=== PATIENT | female | born 1965 | race Caucasian/White ===

== ENCOUNTER 2019-02-20 14:53 | Outpatient (CLI) | payer MEDICARE, MEDICAID ==
--- NOTE | 2019-02-20 15:29 | RAD ---
EXAM: 4 views of the lumbosacral spine HISTORY: Low back pain COMPARISON: None FINDINGS: 4 views of the lumbosacral spine shows normal height and alignment of the vertebral bodies and intervertebral discs without fracture or subluxation. Alignment is unchanged with flexion and extension. Posterior facet arthrosis is seen at L5/S1. The sacroiliac joints are unremarkable. IMPRESSION: Degenerative change at L5/S1 with unchanged alignment with bending.
--- NOTE | 2019-02-20 15:30 | RAD ---
EXAM: 4 views of the cervical spine HISTORY: Neck pain and cervical radiculopathy COMPARISON: None FINDINGS: AP, lateral, and flexion/extension views of the cervical spine shows normal height and alig nment of the vertebral bodies without fracture or subluxation. The intervertebral discs are narrowed throughout cervical spine with moderate anterior osteophytes. No prevertebral soft tissue sw elling is seen. Alignment is unchanged with flexion and extension. IMPRESSION: Moderate degenerative changes of the cervical spine with unchanged alignment with bending .
--- NOTE | 2019-02-20 16:07 | MRI ---
EXAM: MRI cervical spine without contrast HISTORY: Cervical radiculopathy COMPARISON: None TECHNIQUE: Multiplanar multisequence MR images were obtained of the cervical spine without contrast. FINDINGS: The vertebral bodies demonstrate normal height and alignment without fracture or subluxation. There i s generalized disc desiccation and loss of intervertebral disc space height in the mid cervical spine. Endplate degenerative changes are seen in the mid cervical spine. The visualized cord demonstrates normal signal throughout. The craniocervical junction is unremarkab le. The prevertebral soft tissues are unremarkable. No paraspinal soft tissue abnormality is seen. C2/3: No significant posterior bulge or protrusion. No posterior facet arthrosis. No central canal stenosis. No neural foraminal stenosis. C3/4: A small disc osteophyte complex is seen. No posterior facet arthrosis. No central canal steno sis. Mild left neural foraminal stenosis. C4/5: A moderate disc osteophyte complex is seen. No posterior facet arthrosis. Severe central charleen l stenosis. Severe bilateral neural foraminal stenosis. C5/6: A moderate disc osteophyte complex is seen. No posterior facet arthrosis. Moderate central ca nal stenosis. Moderate bilateral neural foraminal stenosis. C6/7: A small disc osteophyte complex is seen. No posterior facet arthrosis. Mild central canal carley nosis. Mild bilateral neural foraminal stenosis. C7/T1: No significant posterior bulge or protrusion. No posterior facet arthrosis. No central canal stenosis. No neural foraminal stenosis. IMPRESSION: Degenerative changes of the cervical spine as above
--- NOTE | 2019-02-20 16:41 | MRI ---
MRI Lumbar Spine Noncontrast: HISTORY: Lumbar radiculopathy. Patient claims of low back pain for years. COMPARISON: None FINDINGS: A subcentimeter focus of increased T2-weighted signal intensity is seen at the anterior aspect superi or pole left kidney which is difficult to characterize but statistically likely represents a small cyst. Visualized retroperitoneal structures otherwise demonstrate grossly normal nonenhanced MRI appe arance. Conus medullaris is normal in morphology and terminates at the T12-L1 level. Endplate degenerative changes are seen at the L5-S1 level. There is otherwise normal signal intensity demonstrated in the bone marrow. L1-2: There is no disc bulge or disc herniation. Central spinal canal and neural foramina are patent. L2-3: There is no disc bulge or disc herniation. Central spinal canal and neural foramina are patent. L3-4: There is no disc bulge or disc herniation. Central spinal canal and neural foramina are patent. L4-5: There is minimal disc osteophyte complex with flattening of the anterior aspect of thecal sac w ithout significant central canal narrowing. There is mild left and minimal right-sided neural foraminal narrowing. L5-S1: There is loss of intervertebral disc height with a right paracentral disc protrusion/foraminal disc protrusion. Central spinal canal is patent. Mild facet degenerative changes are noted. There is minimal left-sided neural foraminal narrowing. This also right-sided neural foraminal narrowing, a nd the right foraminal disc protrusion does appear to contact the right L5 nerve root within the neural foramen. A small increased T2-weighted signal intensity structure is seen just medial to the f acet joints on the left measuring 8 mm reflective of a small synovial cyst which results in only slight mass effect on the left lateral aspect of the thecal sac at this level. There is edema seen wi thin the facet joints on the left as well as fluid signal intensity in the left facet joint. There is mild increased T2-weighted signal intensity seen in a periarticular location involving the facet j oints. Findings are likely related to the prominent degenerative changes of the facet joint at this level. Similar finding is seen on the right but to a much lesser extent. IMPRESSION: 1. Mild disc degenerative changes in lower lumbar spine greatest the L5-S1 level. There is a right fo raminal disc protrusion which narrows the right neural foramen and contacts the right L5 nerve root in the neural foramen. Correlation for right L5 radiculopathy is suggested. 2. Increased T2-weighted signal intensity within the facets as well as fluid signal intensity in the facet joint on the left at the L5-S1 level with periarticular increased signal intensity as well. These findings are likely related to inflammatory changes secondary to the prominent facet hypertroph ic and degenerative changes.
== END 2019-02-20 14:54 | disposition home or self-care (01) ==
LOC: BICMRI 14:53
PROVIDERS: ATTEND Neurological Surgery
DX: M47.22 Other spondylosis with radiculopathy, cervical region (principal); M47.27 Other spondylosis with radiculopathy, lumbosacral region; M51.16 Intervertebral disc disorders with radiculopathy, lumbar region
CPT/HCPCS: 72050; 72110; 72141; 72148

== ENCOUNTER 2019-04-11 09:35 | Outpatient (CLI) | payer MEDICARE, MEDICAID ==
[2019-04-11 11:08] LABS: Hemoglobin 12.7 g/dL (12.0-16.0); Mean Corpuscular HGB CONC 32.9 g/dL (32.0-36.0); Mean Corpuscular Volume 94.1 fL (78.0-98.0); Mean Platelet Volume 8.7 fL (7.4-10.4); Platelet Count 276 thou/uL (130-400); RBC Distribution Width 13.9 % (11.5-14.5); Red Blood Cell (RBC) Count 4.09 mill/uL (4.20-5.40)
[2019-04-11 11:31] LABS: Anion Gap 13 mmol/L (10-20); BUN (Urea Nitrogen) 12 mg/dL (9.8-20.1); Calc. Creatinine Clearance 0 mL/min (70-130); Calcium 9.3 mg/dL (7.8-10.44); Carbon Dioxide 27 mmol/L (22-29); Chloride 100 mmol/L (98-107); Estimated GFR-MDRD 72; Glucose 90 mg/dL (70-105); Sodium 136 mmol/L (136-145)
== END 2019-04-11 09:36 | disposition home or self-care (01) ==
LOC: LABBT 09:35
PROVIDERS: ATTEND Neurological Surgery
DX: Z01.818 Encounter for other preprocedural examination (principal); M54.12 Radiculopathy, cervical region
CPT/HCPCS: 80048; 85027; 93005; 93010

== ENCOUNTER 2019-04-16 07:02 | Day surgery (SDC) | payer MEDICARE, MEDICAID ==
[2019-04-11 10:04] VITALS: BMI 26.6
[2019-04-16] MEDS ORDERED: ceFAZolin Sodium (SDC) 2 GM/100 ML BAG ONE (07:38)
[2019-04-16] MEDS ORDERED: Midazolam HCl 2 mg/2 ml Vial ONE (08:14)
[2019-04-16] MEDS ORDERED: Fentanyl 100 MCG/2 ML VIAL ONE ×4 (09:43→11:56)
--- NOTE | 2019-04-16 12:43 | OP ---
DATE OF PROCEDURE: 04/16/2019 STORAGE RECEIPT POSTER: Jaime Andrade PA-C PROCEDURES PERFORMED: Anterior cervical diskectomy C3 through C5, interbody arthrodesis, intervertebral biomechanical device, local morselized autograft, demineralized bone matrix, anterior titanium instrumentation, C3 through C5. DESCRIPTION OF PROCEDURE: The patient was brought to the operating room and intubated. She was positioned supine with the head in modest extension on gel-filled donut. An incision was made in the right precervical area and dissected medial to the sternocleidomastoid muscle, identified the anterior cervical spinal, and the level was confirmed by x-ray. We placed distraction from C3 to C5, debrided the anterior osteophytes and completely removed the intervertebral disks. After complete decompression had been achieved, bony endplates were decorticated for the purpose of arthrodesis and appropriate-sized intervertebral biomechanical PEEK device was brought into the field, filled with demineralized bone matrix, local morselized autograft, and tapped in place securely at C3-C4 and C4-C5. Next, an anterior plate was brought into the field and secured to C3, C4, and C5 using two 14-mm screws at each level. The wound was then extensively irrigated and MAC hemostasis was secured and the wound was closed in anatomic layers. Job ID: [id number]
[2019-04-16] MEDS ORDERED: HYDROcodone/Acetaminophen 5/325 mg Tablet ONE (13:14)
== END 2019-04-16 14:10 | disposition home or self-care (01) ==
LOC: SDC 07:02
PROVIDERS: ATTEND Neurological Surgery
PROC: 0RG20A0 Fusion of 2 or more Cervical Vertebral Joints with Interbody Fusion Device, Anterior Approach, Anterior Column, Open Approach (ICD-10-PCS; principal; 2019-04-16)
PROC: 0RB30ZZ Excision of Cervical Vertebral Disc, Open Approach (ICD-10-PCS; 2019-04-16)
DX: M50.10 Cervical disc disorder with radiculopathy, unspecified cervical region (principal); Z79.899 Other long term (current) drug therapy
CPT/HCPCS: 76000; C1713; C1776; J0690; J2250; J3010

== ENCOUNTER 2019-04-27 19:45 | Inpatient (IN) | payer MEDICARE, MEDICAID ==
[~2019-04-27 19:45] MED LIST: ISOVUE-370 76%-LOCM 1 ML ONE
[2019-04-27] MEDS ORDERED: HYDROcodone/Acetaminophen 10/325 mg Tablet ONE (21:28)
[2019-04-27] MEDS ORDERED: Fentanyl 100 MCG/2 ML VIAL ONE (22:03)
--- NOTE | 2019-04-27 22:06 | CT ---
CT NECK SOFT TISSUES WITH IV CONTRAST: 04/27/19 HISTORY: 43-year-old female with recent cervical spinal fusion surgery on 04/16/19. Possible infection at surgi ginette site. She noted drainage, swelling, odor. FINDINGS/IMPRESSION: There is fluid and small amount of soft tissue air in the right lower anterior neck without a well lo culated fluid collection. The airway appears patent. The parotid, submandibular and thyroid glands appear normal. A few promine nt right cervical lymph nodes are seen measuring up to 8 mm in short axis diameter. There are emphy sematous changes in the lung apices. There are postop changes of anterior spinal fusion with plate an d screws and intradiscal prostheses at C3-4-5 level in good position and alignment. There is a small amount of air in the soft tissues posterior to the hyoid bone. POS: KASHIF
[2019-04-28] MEDS ORDERED: Nicotine 14 MG PATCH TOP SCH (00:30)
[2019-04-28] MEDS ORDERED: Nicotine 14 MG PATCH ONE (00:32)
[2019-04-28 00:51] LABS: #Basophils 0.2 thou/uL (0.0-0.2); #Eosinphils 0.5 thou/uL (0.0-0.7); #Lymphocytes 4.1 thou/uL (1.20-3.40); #Monocytes 0.7 thou/uL (0.11-0.59); %Basophils 1.9 % (0.0-1.0); %Eosinophils 5.5 % (0.0-10.0); %Lymphocytes 48.5 % (21.0-51.0); %Monocytes 8.2 % (0.0-10.0); %Neutrophils 35.9 % (42.0-75.0); Hemoglobin 12.3 g/dL (12.0-16.0); Mean Corpuscular HGB CONC 33.2 g/dL (32.0-36.0); Mean Corpuscular Hemoglobin 32.3 pg (27.0-31.0); Mean Corpuscular Volume 97.2 fL (78.0-98.0); Mean Platelet Volume 8.1 fL (7.4-10.4); Platelet Count 388 thou/uL (130-400); RBC Distribution Width 13.8 % (11.5-14.5); Red Blood Cell (RBC) Count 3.82 mill/uL (4.20-5.40); White Blood Cell (WBC) Count 8.4 thou/uL (4.8-10.8)
[2019-04-28 00:59] LABS: ALT (SGPT) 29 U/L (8-55); AST (SGOT) 31 U/L (5-34); Albumin 4.2 g/dL (3.5-5.0); Alkaline Phosphatase 103 U/L (40-150); Anion Gap 12 mmol/L (10-20); BUN (Urea Nitrogen) 10 mg/dL (9.8-20.1); Bilirubin, Total 0.2 mg/dL (0.2-1.2); Calc. Creatinine Clearance 0 mL/min (70-130); Calcium 9.9 mg/dL (7.8-10.44); Carbon Dioxide 31 mmol/L (22-29); Chloride 100 mmol/L (98-107); Estimated GFR-MDRD 73; Globulin 3.4 g/dL (2.4-3.5); Glucose 109 mg/dL (70-105); Potassium 3.6 mmol/L (3.5-5.1); Protein, Total 7.6 g/dL (6.0-8.3); Sodium 139 mmol/L (136-145)
[2019-04-28] MEDS ORDERED: Ondansetron PF 4 MG/2 ML Vial IVP PRN (01:00)
[2019-04-28] MEDS ORDERED: Bisacodyl 5 MG TAB PO PRN (01:00)
[2019-04-28] MEDS ORDERED: Senokot S 8.6-50 MG TAB PO PRN (01:00)
[2019-04-28] MEDS ORDERED: PROVENTIL INHALER 6.7 G (200 INHALATIONS) INH PRN (01:14)
[2019-04-28] MEDS ORDERED: traMADol HCl 50 MG TAB PO PRN (01:14)
[2019-04-28 01:47] LABS: INR-International Normal Ratio 0.9; PTT 31.1 SEC (22.9-36.1); Prothrombin Time 12.3 SEC (12.0-14.7)
[2019-04-28] MEDS: HYDROcodone/Acetaminophen 7.5/325 mg Tablet PO PRN ×3 (02:40→23:09)
[2019-04-28] MEDS: Morphine 2 MG/ML SYRINGE SLOW IVP PRN ×3 (02:57→18:45)
[2019-04-28] MEDS ORDERED: Gabapentin 300 MG CAP PO SCH (03:15)
--- NOTE | 2019-04-28 03:27 | HP ---
This is a 50-minute initial patient evaluation of which greater than 50% of the exam was spent counseling and coordinating the patient's care. Remainder of the exam was spent in review of the patient's medical records and formulation of treatment plan. CHIEF COMPLAINT: Anterior cervical wound drainage. HISTORY OF PRESENT ILLNESS: Ms. Gomez is a pleasant 53-year-old female who presents to [facility] with her family for the above complaints. Apparently, the patient states that she noticed drainage onto her pillow night and it ensued today. The patient is status post C3-C5 ACDF on 04/16/[address] Ruiz. Given the wound drainage, the patient called our office today and Nery put her on Keflex and was going to follow up with her in the next few weeks. However, the patient had a significant amount of wound drainage this evening, which prompted her to present to the emergency room. The patient complains of posterior neck pain and slight difficulty swallowing, though she is tolerating a normal diet and is tolerating pills. She has had no muffled voice or significant hoarseness. She smokes tobacco daily. She is not on blood thinners. She denies any radicular symptoms including arm pain, paresthesias into the arms, balance difficulties, or falls. Overall, the patient states she was feeling well postoperatively other than the wound drainage. She states her incision itches, but there is no significant pain at the incision site. The patient did have a soft tissue CT scan of the cervical spine and there was noted some loculation on the right just under the wound opening. There is no enhancement to this, so it is early for abscess to enhance at this point. It appears that most of this loculation is superficial and not close to the patient's hardware. The hardware from C3-C5 is stable. PHYSICAL EXAMINATION: The patient is awake, alert, and appropriate with good strength in the bilateral upper extremities. She has intact sensation to light touch throughout. She walks with a nonantalgic gait. Does not use an assistive device for ambulation. Her incision is covered with Steri-Strips and there is drainage coming from the incision. When are removed there, I can express some purulent, slightly odorous wound drainage. It is mixed with blood. There is surrounding erythema to the incision and there is a slight amount of the swelling. There does not appear to be a significant amount of tension at the incision site. IMPRESSION/DIAGNOSES: 1. Status post C3-C5 ACDF with Dr. Ruiz on 04/16/2019. 2. Purulent wound drainage. 3. Tobacco abuse. PLAN: I have discussed the patient's case and imaging with Dr. Estrada. At this time, we will admit the patient to the hospital and plan for an anterior cervical wound washout and culturing tomorrow or later today. The patient will be n.p.o. and activity is as tolerated. The patient again appears steady on her feet. We will likely consult Infectious Disease and she may need antibiotics, but we will hold on this time given that we want to culture the wound prior to administration of any antibiotics. The patient states she only took one dose of Keflex. We should also note that the patient has been afebrile. We will follow up on labs, but otherwise plan for surgery tomorrow. Risks and benefits of the surgery were discussed with the patient and her family at bedside and they wished to proceed. We will obtain surgical consents. We will also discontinue her nicotine patch. Ample opportunity was given to the patient and her family to discuss their questions and concerns and we will follow up with the patient preoperatively later. Job ID: [id number]
[2019-04-28] MEDS: Sodium Chloride 0.9% 1,000 ML IV SCH ×2 (04:35→16:42)
[2019-04-28 05:57] VITALS: BMI 28.3
[2019-04-28] MEDS: Ipratropium Bromide 2.5 ml Neb NEB SCH ×3 (08:49→20:13)
[2019-04-28] MEDS ORDERED: PROPOFOL 200 MG/20 ML VIAL ONE (08:52)
[2019-04-28] MEDS ORDERED: Ondansetron PF 4 MG/2 ML Vial ONE (08:52)
[2019-04-28] MEDS ORDERED: diphenhydrAMINE 50 MG/ML VIAL ONE (08:52)
[2019-04-28] MEDS ORDERED: Lidocaine 2% PF 5 ML VIAL ONE (08:52)
[2019-04-28] MEDS ORDERED: Sodium Chloride 0.9% 0 ML ONE (10:30)
[2019-04-28] MEDS ORDERED: Thrombin 5000 UNITS/5 ML VIAL ONE ×2 (10:30→12:53)
--- NOTE | 2019-04-28 11:31 | PRG ---
DATE OF SERVICE: 04/28/2019 SUBJECTIVE: Deana Gomez is known to our Neurosurgical Service. She underwent an uncomplicated C3-C5 ACDF 12 days ago by my colleague, Dr. Ruiz. She had done well, however, approximately a week ago, she began to develop swelling under the wound, then began to dissipate, however. Yesterday, she began to develop purulent drainage from the midportion of the wound. She contacted our Neurosurgical Service, and one of our physician tiler's assistant colleagues put her on Keflex. Unfortunately, she began having increased drainage throughout the afternoon and evening and came to the ER. She also reported increased neck pain. LABORATORY DATA: Labs are fairly unremarkable, however, on exam, she does have purulent material coming out of the wound. IMAGING STUDIES: CT of the soft tissues of the neck demonstrates an ellipse shaped collection right underneath the wound. This appears to start to track a bit deeper, but it does not appear to be anywhere near the hardware. The construct itself looks in excellent position and non-threatened. DIAGNOSIS: Concern of wound infection following ACDF. PLAN: While the patient has not had systemic signs of infection, I am concerned given the placement of hardware. If this was just an evidence of a small area of suture irritation or microabscess, I think treatment with oral antibiotics and compress would be just fine, however, given that the wound is openly draining purulent material with the placement of hardware, I would advocate that we take her and culture and wash it out earlier rather than later. We discussed this extensively and the informed consent. She understands and wishes to proceed. We will add CRP and sedimentation rate to the labs. Job ID: [id number]
[2019-04-28] MEDS ORDERED: Midazolam HCl 2 mg/2 ml Vial ONE (12:00)
[2019-04-28] MEDS ORDERED: Fentanyl 100 MCG/2 ML VIAL ONE ×4 (12:52→15:10)
[2019-04-28] MEDS ORDERED: Bacitracin Zinc Ointment 30 gm TUBE ONE (12:53)
[2019-04-28] MEDS ORDERED: Sodium Chloride 0.9% 10 ML ONE (12:53)
[2019-04-28] MEDS ORDERED: metroNIDAZOLE 500 MG/100 ML BAG ONE (13:25)
[2019-04-28] MEDS ORDERED: Lidocaine 1% w/Epinephrine 1:200K 30 ML VIAL ONE (13:29)
[2019-04-28] MEDS ORDERED: Vancomycin HCl 1.5 GM in Sodium Chloride 0.9% 250 ML 300 ML IVPB SCH (13:30)
[2019-04-28] MEDS ORDERED: Ondansetron HCl/PF 4 MG/2 ML Vial IVP PRN (14:16)
[2019-04-28] MEDS ORDERED: Morphine Sulfate 2 MG/ML SYRINGE SLOW IVP PRN (14:16)
[2019-04-28] MEDS ORDERED: Morphine 4 MG/ML VIAL ONE (14:27)
[2019-04-28] MEDS ORDERED: Morphine 2 MG/ML SYRINGE ONE ×2 (14:37→15:02)
[2019-04-28] MEDS: Cefepime 2 GM in Sodium Chloride 0.9% 100 ML IVPB SCH (16:41)
[2019-04-28] MEDS: Lisinopril 10 MG TAB PO SCH (16:41)
[2019-04-28] MEDS: Gabapentin 300 MG CAP PO SCH ×3 (16:42→20:46)
[2019-04-28] MEDS: Simvastatin 5 MG TAB PO SCH (20:47)
[2019-04-28] MEDS: metroNIDAZOLE 500 MG in Premix Bag 1 BAG IVPB SCH (22:00)
--- NOTE | 2019-04-28 22:17 | OP ---
DATE OF PROCEDURE: 04/28/2019 PREPROCEDURE DIAGNOSIS: Concern of superficial abscess following anterior cervical discectomy and fusion surgery with wound drainage. POSTPROCEDURE DIAGNOSIS: Concern of superficial abscess following anterior cervical discectomy and fusion surgery with wound drainage. PROCEDURE: Opening of wound with intraoperative cultures, washout, and re-closure. Modifier-78 should be added to this surgery as this was an unexpected return to the OR. TELEPHONE OPERATOR CHIEF: Jeff Hernandez PA-C DESCRIPTION OF PROCEDURE: After a sterile cleansing, preparation, and draping, and initiation of LMA anesthetic, the wound was identified. Purulent material was identified coming out of the central portion of the wound along with the swelling underneath the wound. This was sterilely cleansed, prepared, and draped. Proper patient, pause, and identification were carried out. The wound was then opened, and bloody cloudy fluid was identified, and a small pocket was deep to the platysma muscle. This was cultured, copiously irrigated, washed out with bacitracin irrigation, maximized hemostasis, and closed in anatomic layers. The patient was emerged from anesthesia. Job ID: [id number]
[2019-04-29] MEDS: Ipratropium Bromide 2.5 ml Neb NEB SCH ×4 (01:01→19:20)
[2019-04-29] MEDS: Sodium Chloride 0.9% 1,000 ML IV SCH ×2 (04:05→16:54)
[2019-04-29] MEDS: HYDROcodone/Acetaminophen 7.5/325 mg Tablet PO PRN ×3 (05:51→18:46)
[2019-04-29] MEDS: metroNIDAZOLE 500 MG in Premix Bag 1 BAG IVPB SCH ×3 (06:01→22:33)
[2019-04-29] MEDS: Lisinopril 10 MG TAB PO SCH (09:14)
[2019-04-29] MEDS: Gabapentin 300 MG CAP PO SCH ×3 (09:14→21:44)
--- NOTE | 2019-04-29 11:41 | PRG ---
DATE OF SERVICE: 04/29/2019 This is Jeff Hernandez PA-C dictating a report for Maury Estrada MD. This is postoperative recheck. Ms. Gomez is postoperative day #1 having undergone anterior cervical wound washout. She is doing well today. She has significant incisional pain, but no difficulty swallowing and no hoarseness. She has continued posterior neck pain, but this is unchanged compared to her first surgery. She has no arm or hand pain. She is tolerating a full liquid diet. She remains on Flagyl, vancomycin, and cefepime. We have consulted Infectious Disease. So far, her Gram stain is negative other than some white blood cells and her culture is preliminary, but negative. We will continue to follow the patient, hope for discharge tomorrow depending on Infectious Disease input and possibility of home antibiotics. Please call with any changes in the patient's neurologic status. I do not want her diet advanced and I have discussed this with the patient. Job ID: [id number]
[2019-04-29] MEDS: Cefepime 2 GM in Sodium Chloride 0.9% 100 ML IVPB SCH (12:00)
[2019-04-29] MEDS: Acetaminophen 325 MG TAB PO PRN ×2 (14:35→22:35)
--- NOTE | 2019-04-29 21:30 | CON ---
DATE OF CONSULTATION: 04/29/2019 REASON FOR CONSULTATION: Postoperative infection of anterior cervical fusion site. HISTORY OF PRESENT ILLNESS: A 53-year-old with history of chronic smoking as well as hepatitis C untreated and chronic neck pain who underwent fusion of the cervical, I believe, C2-C3 area on April 16 and developed drainage the day before admission with odor. Was given Keflex and then was admitted and Dr. Estrada did I and D. the procedure was reviewed and it appeared to be a superficial inflammatory process that did not go into the area of the fusion as we see often in those cases. Currently, she is feeling well. Minor pain at the operative site. No headaches. No visual symptoms, sore throat, odynophagia or dysphagia. No respiratory symptoms or abdominal pain. No diarrhea. Voiding without difficulty. No other joint symptoms. MEDICAL HISTORY: Chronic hep C untreated, hyperlipidemia, hypertension, back pain, COPD, and chronic smoking, still actively smoking. PAST SURGICAL HISTORY: Hysterectomy, laminectomy and the recent ACDF. SOCIAL HISTORY: Current smoker. No alcoholic beverage use. ALLERGIES: NONE. CURRENT MEDICATIONS: Tylenol, [place], Proventil, Dulcolax, cefepime, Neurontin, Atrovent, Zestril, Flagyl, morphine, Zofran, Seroquel, Senokot, Zocor, Ultram and vancomycin. PHYSICAL EXAMINATION: VITAL SIGNS: T-max 98.8, BP 124/87, pulse 71, respirations 18, O2 saturation 91-96%. GENERAL: Appears in no distress. HEENT: No lymphadenopathy. The area of the incision is covered with dressing, which is not removed at this time. Ocular movements conjugate. Oral cavity with dentures. NECK: SUPPLE. LUNGS: Symmetric clear breath sounds. HEART: S1-S2 regular rate. ABDOMEN: Soft, not distended or tender. No appendicular structure abnormalities noted. Peripheral IV access. No Lora catheter. LABORATORY DATA: With a normal white cell count, hemoglobin and platelets, as well as normal differential, maybe a little reduction in neutrophil percentage. Chemistries were fairly unremarkable. CRP was 0.74. Microbiology preliminary results with many wbc's, no organisms seen yet. ASSESSMENT AND PLAN: Chronic smoking, recent anterior cervical decompressive laminectomy and fusion with now postoperative infection, which appears to be superficial. DISCUSSION: The patient has had culture submitted and we will hopefully discharge on oral antimicrobial therapy for a limited period of time assuming a superficial process, which is frequent in those cases of ACDF, as well as a susceptible pathogen. The current medications will be continued as they are prescribed at this time until we receive final results of cultures. Job ID: [id number] MTDD
[2019-04-29] MEDS: Simvastatin 5 MG TAB PO SCH (21:47)
[2019-04-30] MEDS: Ipratropium Bromide 2.5 ml Neb NEB SCH ×3 (01:18→15:19)
[2019-04-30] MEDS: metroNIDAZOLE 500 MG in Premix Bag 1 BAG IVPB SCH ×2 (05:15→13:27)
[2019-04-30] MEDS: Sodium Chloride 0.9% 1,000 ML IV SCH (05:52)
[2019-04-30] MEDS: Gabapentin 300 MG CAP PO SCH ×2 (09:30→14:31)
[2019-04-30] MEDS: HYDROcodone/Acetaminophen 7.5/325 mg Tablet PO PRN (09:30)
[2019-04-30] MEDS: Lisinopril 10 MG TAB PO SCH (09:30)
--- NOTE | 2019-04-30 11:01 | PRG ---
DATE OF SERVICE: 04/30/2019 Ms. Gomez is postoperative day 3 from the concern of wound abscess irrigation and debridement. Her wound is healing well. She is neurologically doing well. We are awaiting final culture. I should note she has been afebrile and appears if her cultures going to show mixed jeanmarie. We have had her on vancomycin, cefepime, and Flagyl. We will change her to appropriate gram-positive and gram-negative oral coverage given the mixed culture nature. She will be dismissed today. Job ID: [id number]
[2019-04-30 12:05] VITALS: TEMP 98.6
[2019-04-30 12:15] VITALS: BP 172/96
[2019-04-30] MEDS: Cefepime 2 GM in Sodium Chloride 0.9% 100 ML IVPB SCH (13:20)
[2019-04-30] MEDS: Acetaminophen 325 MG TAB PO PRN (13:27)
--- NOTE | 2019-05-01 14:04 | DIS ---
DATE OF ADMISSION: 04/28/2019 DATE OF DISCHARGE: 04/30/2019 DISCHARGE DIAGNOSES: 1. Cervical wound drainage, purulent in nature. 2. Status post C3-C5 Anterior cervical discectomy and fusion with Dr. Ruiz on 04/16/2019. 3. Chronic headache and neck pain. HOSPITAL COURSE: Ms. Gomez was admitted on 04/27/2019 due to a 2-day history of cervical wound drainage. Given the drainage and a loculation noted on soft tissue cervical spine CT scans, the patient was taken to the OR on 04/29/2019 and her wound was washed out. Her surgery was without complication, required several overnight stays in order to have adequate pain control as well as to monitor her microbiology culture. At the time of discharge, the patient was doing well with significant improvement in her anterior neck pain. She continues with chronic posterior neck pain and headache. On physical exam, she is walking unassisted and appears to be very steady on her feet. She has good strength in bilateral upper extremities. Fortunately, she is continuing to smoke. She is also tearful through the exam today, but she states that this is because she would like to go home. I asked if it was safe for her to go home since she has a history of anxiety and she stated yes, her family will be caring for her and she would like to see her dog. Nonetheless, we will discharge her home and she will follow up with Dr. Ruiz's team as scheduled, which appears to be on 05/02/2019 with Nery Price. I did electronically send in Bactrim to the patient's pharmacy on records. Again, the patient will call with questions or concerns. Otherwise, she has met criteria for discharge and she is pleased with her outcome. Job ID: [id number]
== END 2019-04-30 16:39 | disposition home or self-care (01) | DRG 858 ==
LOC: ERS 19:45 → SURG B 04-28 00:23
PROVIDERS: ADMIT Surgery; ATTEND Surgery
PROC: 0J970ZZ Drainage of Back Subcutaneous Tissue and Fascia, Open Approach (ICD-10-PCS; principal; 2019-04-28)
DX: T81.41XA Infection following a procedure, superficial incisional surgical site, initial encounter (principal); Z98.1 Arthrodesis status; E78.5 Hyperlipidemia, unspecified; I10 Essential (primary) hypertension; M54.9 Dorsalgia, unspecified; J44.9 Chronic obstructive pulmonary disease, unspecified; Z90.710 Acquired absence of both cervix and uterus; Z98.890 Other specified postprocedural states; F17.200 Nicotine dependence, unspecified, uncomplicated; Z79.899 Other long term (current) drug therapy; G89.29 Other chronic pain
CPT/HCPCS: 36415; 70491; 80053; 85025; 85610; 85652; 85730; 86140; 87070; 87077; 87186; 87205; 94640; 96374; J0692; J1200; J2001; J2250; J2270; J2405; J2704; J3010; J3370; J3490; J7050; Q9966

== ENCOUNTER 2019-05-02 10:59 | Outpatient (CLI) | payer MEDICARE, MEDICAID ==
--- NOTE | 2019-05-02 11:18 | RAD ---
Exam: Cervical spine 3 views: HISTORY: Cervical radiculopathy, wound with infection, patient on antibiotics COMPARISON: 02/20/2019 FINDINGS: Focal soft tissue swelling anteriorly with a possible small punctate focus of gas which certainly cou ld be consistent with history of infection. Anterior cervical fusion changes at C3, C4, and C5 intradiscal prosthesis. Generalized spondylosis. No significant malalignment. IMPRESSION: Anterior soft tissue swelling of the neck, evidence for soft tissue infection. Anterior cervical fusion changes. Generalized spondylosis.
== END 2019-05-02 11:00 | disposition home or self-care (01) ==
LOC: TBSIIMAG 10:59
PROVIDERS: ATTEND Neurological Surgery
DX: M47.22 Other spondylosis with radiculopathy, cervical region (principal); L08.9 Local infection of the skin and subcutaneous tissue, unspecified; Z98.1 Arthrodesis status
CPT/HCPCS: 72040

== ENCOUNTER 2019-07-10 15:56 | Outpatient (CLI) | payer MEDICARE, MEDICAID ==
--- NOTE | 2019-07-10 16:19 | RAD ---
Cervical spine 3 views: 07/10/2019 COMPARISON: 05/12/2019 HISTORY: Evaluate cervical spine following cervical spine surgery, cervical radiculopathy FINDINGS: Anterior discectomy and fusion hardware is again noted at C3-4/C4-5. There is disc space na rrowing and degenerative endplate change at C5-6 and C6-7. Open-mouth odontoid view demonstrates a normal-appearing dens and C1-2 articulation. Multilevel upper thoracic spine kyphoplasty changes are again noted. IMPRESSION: Stable postoperative and degenerative change within the cervical spine as detailed above.
== END 2019-07-10 15:57 | disposition home or self-care (01) ==
LOC: TBSIIMAG 15:56
PROVIDERS: ATTEND Neurological Surgery
DX: M50.30 Other cervical disc degeneration, unspecified cervical region (principal); Z98.890 Other specified postprocedural states
CPT/HCPCS: 72040

== ENCOUNTER 2020-08-26 12:06 | Outpatient (CLI) | payer MEDICARE, MEDICAID ==
--- NOTE | 2020-09-05 08:37 | MMO ---
Bilateral MAMMO Bilat Screen [facility]. CLINICAL HISTORY: Patient is 55 years old and is seen for screening. The patient has the following family history of breast cancer: paternal grandmother, malignant (generic). The patient has no personal history of cancer. VIEWS: The views performed were: bilateral craniocaudal with tomosynthesis and bilateral mediolateral oblique with tomosynthesis. FILMS COMPARED: The present examination has been compared to prior imaging studies performed at This study has been interpreted with the assistance of computer-aided detection. MAMMOGRAM FINDINGS: There are scattered fibroglandular densities. There are stable benign appearing calcifications seen in both breasts. There are no suspicious masses, suspicious calcifications, or new areas of architectural distortion. IMPRESSION: THERE IS NO MAMMOGRAPHIC EVIDENCE OF MALIGNANCY. A ROUTINE FOLLOW-UP MAMMOGRAM IN 1 YEAR IS RECOMMENDED. THE RESULTS OF THIS EXAM WERE SENT TO THE PATIENT. ACR BI-RADS Category 2 - Benign finding MAMMOGRAPHY NOTE: 1. A negative mammogram report should not delay a biopsy if a dominant of clinically suspicious mass is present. 2. Approximately 10% to 15% of breast cancers are not detected by mammography. 3. Adenosis and dense breasts may obscure an underlying neoplasm. Reported by: JANES TEJADA MD Electonically Signed: [id number]
== END 2020-08-26 12:07 | disposition home or self-care (01) ==
LOC: BICMAMMO 12:06
PROVIDERS: ATTEND Student in an Organized Health Care Education/Training Program
DX: Z12.31 Encounter for screening mammogram for malignant neoplasm of breast (principal); Z80.3 Family history of malignant neoplasm of breast
CPT/HCPCS: 77063; 77067

== ENCOUNTER 2021-06-03 07:22 | Outpatient (CLI) | payer MEDICARE, MEDICAID | END 2021-06-03 07:23 | disposition home or self-care (01) | LOC: ULT 07:22 → BICULT 07:23 | PROVIDERS: ATTEND Internal Medicine | DX: B18.2 Chronic viral hepatitis C (principal) | CPT/HCPCS: 76700 ==

== ENCOUNTER 2023-09-21 11:35 | Outpatient (CLI) | payer OTHER, MEDICAID | END 2023-09-21 11:36 | disposition home or self-care (01) | LOC: CT 11:35 | PROVIDERS: ATTEND Physician Assistant Medical | DX: R22.1 Localized swelling, mass and lump, neck (principal); R13.10 Dysphagia, unspecified; Z98.1 Arthrodesis status | CPT/HCPCS: 70491 ==

== ENCOUNTER 2025-08-19 13:40 | Outpatient (CLI) | payer OTHER, MEDICAID | END 2025-08-19 13:41 | disposition home or self-care (01) | LOC: BICRAD 13:40 | PROVIDERS: ATTEND Family Medicine | DX: R07.89 Other chest pain (principal) | CPT/HCPCS: 71046 ==